=== PATIENT | male | born 1945 | race Two or more races ===

== ENCOUNTER 2018-02-21 11:44 | Emergency (ER) | payer OTHER ==
[~2018-02-21] VITALS: Ht 167.6 cm; Wt 66.0 kg
[2018-02-21] MEDS ORDERED: ACETAMINOPHEN 500MG TABLET PO ONE (16:15)
[2018-02-21 19:57] VITALS: BP 134/65
== END 2018-02-21 19:40 | disposition home or self-care (01) ==
LOC: ER 11:44
DX: S00.83XA Contusion of other part of head, initial encounter (principal); S20.211A Contusion of right front wall of thorax, initial encounter; Y04.2XXA Assault by strike against or bumped into by another person, initial encounter; Y93.01 Activity, walking, marching and hiking; Y92.480 Sidewalk as the place of occurrence of the external cause
CPT/HCPCS: 71045; 99284